=== PATIENT | male | born 1995 | race Caucasian/White ===

== ENCOUNTER 2016-08-25 20:30 | Emergency (ER) | payer OTHER ==
[~2016-08-25] VITALS: Ht 165.1 cm; Wt 82.5 kg
[2016-08-25] MEDS ORDERED: KETOROLAC TROMETHAMINE 60 MG/2 ML VIAL IM ONE (23:45)
[2016-08-26 00:44] VITALS: BP 125/60
== END 2016-08-26 00:46 | disposition home or self-care (01) ==
LOC: EMS 20:31
DX: R07.89 Other chest pain (principal)
CPT/HCPCS: 71010; 80307; 93005; 96372; 99285; J1885

== ENCOUNTER 2016-09-28 16:44 | Emergency (ER) | payer OTHER ==
[~2016-09-28] VITALS: Ht 165.1 cm; Wt 83.2 kg
[2016-09-28] MEDS ORDERED: IBUPROFEN 800 MG TABLET PO ONE (19:30)
[2016-09-28] MEDS ORDERED: ALPRAZolam 0.25 MG TABLET PO ONE (20:15)
[2016-09-28] MEDS ORDERED: DiphenhydrAMINE HCL 50 MG/ML VIAL IVP ONE (20:45)
[2016-09-28] MEDS ORDERED: SODIUM CHLORIDE 0.9% 1,000 ML IV ONE (20:45)
[2016-09-28 22:00] VITALS: BP 122/78
== END 2016-09-28 22:16 | disposition home or self-care (01) ==
LOC: EMS 16:48
DX: R51 Headache (principal); F41.9 Anxiety disorder, unspecified; F12.90 Cannabis use, unspecified, uncomplicated
CPT/HCPCS: 96361; 96374; 99284; J1200; J7030

== ENCOUNTER 2016-10-14 16:18 | Emergency (ER) | payer OTHER ==
[~2016-10-14] VITALS: Ht 170.2 cm; Wt 81.5 kg
[2016-10-14] MEDS ORDERED: CefTRIAXone SODIUM 1 GM/VIAL IM ONE (17:30)
[2016-10-14] MEDS ORDERED: LIDOCAINE HCL/PF 1% 2 ML VIAL IM ONE (17:30)
[2016-10-14] MEDS ORDERED: DOXYCYCLINE 100 MG CAPSULE PO ONE (17:30)
[2016-10-14 17:38] LABS: APPEARANCE,URINE CLEAR (CLEAR); GLUCOSE, URINE (UA) NEGATIVE (NEGATIVE); KETONES,URINE NEGATIVE (NEGATIVE); LEUKOCYTE ESTERASE ,URINE MODERATE (NEGATIVE); OCCULT BLOOD,URINE NEGATIVE (NEGATIVE); PROTEIN,URINE NEGATIVE (NEGATIVE)
[2016-10-14 17:49] LABS: RBC,URINE 0-2 /HPF (0-2); SQUAMOUS EPITHELIAL CELL,UR Rare /LPF (None Seen); WBC,URINE 26-50 /HPF (0-5)
[2016-10-14 18:20] VITALS: BP 127/73
== END 2016-10-14 18:21 | disposition home or self-care (01) ==
LOC: EMS 16:19
DX: N34.2 Other urethritis (principal); H10.9 Unspecified conjunctivitis; S00.06XA Insect bite (nonvenomous) of scalp, initial encounter; F12.90 Cannabis use, unspecified, uncomplicated; W57.XXXA Bitten or stung by nonvenomous insect and other nonvenomous arthropods, initial encounter; Y93.89 Activity, other specified; Y92.89 Other specified places as the place of occurrence of the external cause; Y99.8 Other external cause status
CPT/HCPCS: 81001; 87086; 96372; 99284; J0696; J3490

== ENCOUNTER 2016-10-28 18:28 | Emergency (ER) | payer OTHER | END 2016-10-28 19:29 | disposition left against medical advice (07) | LOC: EMS 18:40 | DX: R51 Headache (principal); Z53.21 Procedure and treatment not carried out due to patient leaving prior to being seen by health care provider ==

== ENCOUNTER 2017-03-21 14:25 | Emergency (ER) | payer OTHER ==
[~2017-03-21] VITALS: Ht 165.1 cm; Wt 81.8 kg
[2017-03-21 16:29] LABS: BASOPHILS % (AUTO) 0.6 % (0.0-2.0); EOSINOPHILS % (AUTO) 1.6 % (1.0-6.0); HEMOGLOBIN 15.1 g/dL (13.5-17.5); LYMPHOCYTES # (AUTO) 3.9 K/uL (1.0-4.8); LYMPHOCYTES % (AUTO) 33.4 % (22.0-44.0); MEAN CORPUSCULAR HEMOGLOBIN 30.4 pg (26.0-34.0); MEAN CORPUSCULAR HGB CONC 35.1 G/dL (31.0-37.0); MEAN CORPUSCULAR VOLUME 87 fL (80-100); MONOCYTES % (AUTO) 8.3 % (2.0-9.0); NEUTROPHILS # (AUTO) 6.5 K/uL (1.8-7.7); NEUTROPHILS % (AUTO) 56.1 % (40.0-70.0); PLATELET COUNT (AUTO) 224 K/uL (150-450); RED BLOOD CELL COUNT(AUTO) 4.97 MIL/uL (4.50-5.90); RED CELL DISTRIBUTION WIDTH 13.3 % (11.5-14.5); WHITE BLOOD COUNT (AUTO) 11.6 K/uL (4.5-11.0)
[2017-03-21 16:38] LABS: ANION GAP 11 mmol/L (8-16); CALCIUM, TOTAL 8.7 mg/dL (8.8-10.5); CARBON DIOXIDE 27 mmol/L (22-29); CHLORIDE 104 mmol/L (98-107); CREATININE 0.83 mg/dL (0.60-1.30); GLOMERULAR FILTR. RATE CALC > 60 mL/min (>60); SODIUM SERUM 142 mmol/L (136-145); UREA NITROGEN, BLOOD 15 mg/dL (7-18)
[2017-03-21 16:40] LABS: ALANINE AMINOTRANSFERASE 24 U/L (12-78); ASPARTATE AMINOTRANSFERASE 11 U/L (15-37); BILIRUBIN,TOTAL 0.4 mg/dL (0.1-1.0); TOTAL PROTEIN, SERUM 7.7 g/dL (6.4-8.2)
[2017-03-21 16:51] LABS: APPEARANCE,URINE CLEAR (CLEAR); GLUCOSE, URINE (UA) NEGATIVE (NEGATIVE); KETONES,URINE NEGATIVE (NEGATIVE); LEUKOCYTE ESTERASE ,URINE NEGATIVE (NEGATIVE); OCCULT BLOOD,URINE NEGATIVE (NEGATIVE); PH,URINE 8.5 (5.0-8.0); PROTEIN,URINE POS 1+ (NEGATIVE)
[2017-03-21 17:00] LABS: ADD UA MICROSCOPIC YES
[2017-03-21] MEDS ORDERED: KETOROLAC TROMETHAMINE 30 MG/ML VIAL IM ONE (17:15)
[2017-03-21 17:16] LABS: RBC,URINE None Seen /HPF (0-2); SQUAMOUS EPITHELIAL CELL,UR Few /LPF (None Seen); WBC,URINE 0-2 /HPF (0-5)
[2017-03-21 18:02] VITALS: BP 129/79
== END 2017-03-21 18:12 | disposition home or self-care (01) ==
LOC: EMS 14:27
DX: R10.9 Unspecified abdominal pain (principal); F12.90 Cannabis use, unspecified, uncomplicated
CPT/HCPCS: 36415; 80053; 81001; 83690; 85025; 93005; 96372; 99285; J1885

== ENCOUNTER 2020-06-25 18:56 | Emergency (ER) | payer OTHER ==
[~2020-06-25] VITALS: Ht 165.1 cm; Wt 98.6 kg
[2020-06-25] MEDS ORDERED: HYDROCODONE/ACETAMINOPHEN 5-325 MG TABLET PO ONE (20:30)
[2020-06-25 20:51] VITALS: BP 148/80
== END 2020-06-25 21:00 | disposition home or self-care (01) ==
LOC: EMS 18:56
DX: S93.402A Sprain of unspecified ligament of left ankle, initial encounter (principal); F12.90 Cannabis use, unspecified, uncomplicated; X50.1XXA Overexertion from prolonged static or awkward postures, initial encounter; Y93.01 Activity, walking, marching and hiking; Y92.89 Other specified places as the place of occurrence of the external cause; Y99.8 Other external cause status
CPT/HCPCS: 29515; 99284

== ENCOUNTER 2024-11-04 00:40 | Emergency (ER) | payer OTHER ==
[~2024-11-04] VITALS: Ht 165.1 cm; Wt 109.1 kg
[2024-11-04 00:48] VITALS: BP 137/71; PULSE 95; RESP 16; TEMP 98.2; O2SAT 100
[2024-11-04 01:05] LABS: COVID AG,FIA SOURCE NASAL SWAB
[2024-11-04 01:27] LABS: SARS-COV2 (COVID) ANTIGEN,FIA Negative (Negative)
[2024-11-04 01:28] LABS: INFLUENZA TYPE A NEGATIVE FOR TYPE A (NEGATIVE); INFLUENZA TYPE B NEGATIVE FOR TYPE B (NEGATIVE)
[2024-11-04] MEDS: BENZONATATE 100 MG CAPSULE PO ONE (01:44)
[2024-11-04] MEDS ORDERED: BENZ-227 PO (01:57)
== END 2024-11-04 02:17 | disposition home or self-care (01) ==
LOC: EMS 00:40
DX: J06.9 Acute upper respiratory infection, unspecified (principal); B97.89 Other viral agents as the cause of diseases classified elsewhere; F12.90 Cannabis use, unspecified, uncomplicated; R05.9 Cough, unspecified; Z20.822 Contact with and (suspected) exposure to COVID-19
CPT/HCPCS: 71045; 87804; 99284